=== PATIENT | female | born 1965 | race Two or more races ===

== ENCOUNTER → 2024-11-13 | Outpatient (CLI) | payer BC, SELFPAY ==
[2024-11-13 14:00] LABS: Basophils % (Auto) 1 % (0-2.5); Eosinophils # (Auto) 0.5 Thou/mm3 (0.0-0.5); Eosinophils % (Auto) 13 % (0-10); Hematocrit 37.6 % (36.0-46.0); Hemoglobin 12.2 g/dL (12.0-16.0); Immature Granulocytes % (Auto) 0 % (0-0); Immature Granulocytes Auto 0.01 Thou/mm3 (0.00-0.00); Lymphocytes # (Auto) 1.4 Thou/mm3 (1.0-4.8); Lymphocytes % (Auto) 34 % (10-50); Mean Corpuscular HGB Conc 32.4 g/dl (31.0-37.0); Mean Corpuscular Hemoglobin 28.6 pg (25.0-35.0); Mean Corpuscular Volume 88 fL (80-100); Monocytes # (Auto) 0.4 Thou/mm3 (0.0-0.8); Monocytes % (Auto) 9 % (0-12); Neutrophils # (Auto) 1.8 Thou/mm3 (1.8-7.7); Neutrophils % (Auto) 44 % (37-80); Nucleated Red Blood Cell % 0 /100 WBC (0); Platelet Count 257 Thou/mm3 (140-440); RDW Standard Deviation 43.2 fL (36.4-46.3); Red Blood Count 4.26 Miln/mm3 (4.00-5.20); White Blood Count 4.1 Thou/mm3 (3.6-11.0)
[2024-11-13 14:16] LABS: Alanine Aminotransferase 17 U/L (10-49); Albumin, Serum 4.3 gm/dL (3.5-5.0); Anion Gap 6 (7-16); Aspartate Amino Transferase 21 U/L (0-34); BUN/Creatinine Ratio 29 Ratio (12-20); Bilirubin,Direct 0.1 mg/dL (0.0-0.3); Bilirubin,Total 0.4 mg/dL (0.3-1.2); Blood Urea Nitrogen 20 mg/dL (9-23); Calcium 9.5 mg/dL (8.3-10.6); Cardiac Risk Estimate 2.9 RATIO (3.7-5.6); Chloride 108 mMol/L (98-107); Cholesterol 197 mg/dL (132-200); Creatinine (Component) 0.7 mg/dL (0.6-1.3); Glucose 89 mg/dL (74-106); HDL Cholesterol 68 mg/dL (40-60); LDL Cholesterol,Calculated 116 mg/dL (0-130); Osmolality,Calculated 284 (275-295); Potassium 4.1 mMol/L (3.4-5.1); Sodium 142 mMol/L (136-145); Total Protein 6.9 gm/dL (5.7-8.2); Triglycerides 66 mg/dL (30-150); eGFR > 60 See Note
[2024-11-13 14:34] LABS: Alkaline Phosphatase 65 U/L (46-116)
== END | disposition home or self-care (01) ==
LOC: COPL 12:09
PROVIDERS: PCP Family Medicine; Referring Provider Family Medicine; Visit Provider Family Medicine
DX: E78.5 Hyperlipidemia, unspecified (principal); G58.9 Mononeuropathy, unspecified
CPT/HCPCS: 36415; 80048; 80061; 80076; 85025

== ENCOUNTER → 2024-12-11 | Outpatient (CLI) | payer BC, SELFPAY ==
--- NOTE | 2024-12-11 11:15 | XR_ITS ---
Examination: Screening digital mammography, bilateral Computer aided detection 3-D breast Tomosynthesis, bilateral Date and time of exam: December 11, 2024 1045 hours Compared to mammograms dating to August 01, 2018 Indication: Screening Technique: Nonmagnified MLO, CC views of the breasts to been obtained, reconstructed from 3-D Tomosynthesis images. R2 computer aided detection program utilized for evaluation of suspicious masses and/or abnormal calcifications. 3-D Tomosynthesis images obtained. Findings: The breasts are heterogeneously dense, which may obscure small masses 24 mm partially circumscribed nodule retroareolar region left breast which may represent a cyst Impression: BI-RADS Category 0: Incomplete: Need additional imaging evaluation Recommend follow-up spot tomographic views retroareolar region left breast to assess 24 mm partially circumscribed nodule, as well as left breast sonography to complete the workup
== END | disposition home or self-care (01) ==
LOC: CDIM 10:32
PROVIDERS: PCP Family Medicine; Referring Provider Family Medicine; Visit Provider Family Medicine
DX: Z12.31 Encounter for screening mammogram for malignant neoplasm of breast (principal); R92.8 Other abnormal and inconclusive findings on diagnostic imaging of breast; N63.42 Unspecified lump in left breast, subareolar
CPT/HCPCS: 77063; 77067

== ENCOUNTER → 2025-02-08 | Outpatient (CLI) | payer BC, SELFPAY ==
--- NOTE | 2025-02-08 12:45 | XR_ITS ---
Examination: Breast ultrasound, unilateral, left complete Date and time of exam: February 08, 2025 1328 hours INDICATIONS: Mammogram December 11, 2024 24 mm nodule retroareolar region left breast Technique: Real-time martinez scale ultrasonographic imaging performed left breast including all 4 quadrants as well as nipple retroareolar and axillary region. Findings: No cystic or solid mass Dilated ducts retroareolar IMPRESSION: BI-RADS Category 2: Benign findings
--- NOTE | 2025-02-08 13:15 | XR_ITS ---
Examination: Diagnostic digital mammography, unilateral, left Computer aided detection 3-D breast Tomosynthesis, unilateral Date and time of exam: February 08, 2025 1340 hours INDICATIONS: Mammogram December 11, 2024 24 mm partially circumscribed nodule retroareolar region left breast Technique: Nonmagnified MLO, CC views of the left breast have been obtained, reconstructed from 3-D Tomosynthesis images. R2 computer aided detection program utilized for evaluation of suspicious masses and/or abnormal calcifications. 3-D Tomosynthesis images obtained. Findings: The breast is heterogeneously dense, which may obscure small masses 24 mm nodule retroareolar region left breast is again depicted Impression: BI-RADS category 0: Incomplete: Need additional imaging evaluation Recommend this patient return for repeat dedicated left breast sonography with the radiologist in attendance
== END | disposition home or self-care (01) ==
LOC: CDIM 12:41
PROVIDERS: PCP Family Medicine; Referring Provider Family Medicine; Visit Provider Family Medicine
DX: R92.8 Other abnormal and inconclusive findings on diagnostic imaging of breast (principal)
CPT/HCPCS: 76641; 77061; 77065; G0279

== ENCOUNTER → 2025-07-12 | Outpatient (CLI) | payer BC, SELFPAY ==
--- NOTE | 2025-07-12 09:00 | XR_ITS ---
Examination: Breast ultrasound, unilateral, left Date and time of exam: July 12, 2025, 0906 hours INDICATIONS: Mammogram 05/11/2025 24 mm nodule retroareolar region left breast Technique: Real-time martinez scale ultrasonographic imaging performed left breast including all 4 quadrants as well as nipple retroareolar and axillary region. Findings: Glandular tissue and dilated retroareolar ducts No suspicious mass IMPRESSION: BI-RADS Category 2: Benign findings
== END | disposition home or self-care (01) ==
LOC: CDIM 07-04 08:26 → SDIM 08:45
PROVIDERS: PCP Family Medicine; Referring Provider Family Medicine; Visit Provider Family Medicine
DX: N63.0 Unspecified lump in unspecified breast (principal)
CPT/HCPCS: 76641